=== PATIENT | female | born 1970 ===

== ENCOUNTER 2024-12-13 10:59 | Outpatient (REF) | payer SELFPAY ==
[2024-12-13 13:09] LABS: MANUAL DIFF FLAG NO
[2024-12-13 13:23] LABS: Basophils Absolute Auto 0.1 X10*3/uL (0.0-0.2); Basophils Percent Auto 0.6 % (0-2); Eosinophils Absolute Auto 0.2 X10*3/uL (0.0-0.4); Eosinophils Percent Auto 2.5 % (0-4); Hematocrit 44.3 % (37.0-47.0); Hemoglobin 14.7 g/dl (12.0-16.0); Imm Gran Abs Auto 0.08 X10*3/uL (0.00-0.03); Imm Gran Pct Auto 0.9 % (0.0-0.4); Lymphocytes Absolute Auto 3.2 X10*3/uL (1.2-4.9); Lymphocytes Percent Auto 37.5 % (20-40); Mean Corpuscular HGB Conc 33.2 g/dl (31.0-35.0); Mean Corpuscular Hemoglobin 28.2 pg (27.0-33.0); Mean Platelet Volume 12.2 fL (9.4-12.3); Monocytes Absolute Auto 0.6 X10*3/uL (0.1-1.2); Monocytes Percent Auto 6.7 % (2-11); Neutrophils Absolute Auto 4.5 x10*3/uL (2.0-8.3); Neutrophils Percent Auto 51.8 % (45-73); Platelet Count 274 X10*3/uL (160-400); Red Blood Count 5.21 X10*6/uL (4.20-5.50); Red Cell Distribution Width 13.6 % (11.0-16.0); White Blood Count 8.6 X10*3/uL (4.8-10.8)
[2024-12-13 13:45] LABS: Albumin Level 4.2 g/dL (3.5-5.0); Alkaline Phosphatase 71 U/L (39-117); Anion Gap 12 (12-20); Aspartate Amino Transferase 38 U/L (5-31); Bilirubin Total 0.4 mg/dL (0.0-1.0); Blood Urea Nitrogen 16 mg/dL (9-16); Calcium 9.1 mg/dL (8.4-10.2); Carbon Dioxide 27 mmol/L (22-29); Chloride 106 mmol/L (96-108); Cholesterol 220 mg/dL (<200); Estimated Glomerular Filt Rate > 60; Glucose Random 188 mg/dL (60-115); HDL Cholesterol 50 mg/dL (>40); LDL Cholesterol Calculated 136 mg/dL (<100); Potassium 3.7 mmol/L (3.3-5.1); Sodium 141 mmol/L (135-145); Total Protein 7.3 g/dL (6.5-8.0); Triglycerides 170 mg/dL (<150)
[2024-12-13 13:59] LABS: Alanine Aminotransferase 47 U/L (0-31); TSH reflex Free T4 3.83 uIU/mL (0.32-4.0)
[2024-12-14 14:17] LABS: HCV Log PCR <1.18 NOT DETECTED Log IU/mL (NOT DETECTED); HepC Viral Load <15 NOT DETECTED IU/mL (NOT DETECTED)
== END 2024-12-13 11:00 | disposition home or self-care (01) ==
LOC: HO.HHCL 10:59
PROVIDERS: Visit Provider Internal Medicine
DX: E11.9 Type 2 diabetes mellitus without complications (principal)
CPT/HCPCS: 36415; 80053; 80061; 84443; 85025; 87522

== ENCOUNTER 2025-09-26 16:38 | Outpatient (REF) | payer MEDICAID, OTHER, SELFPAY ==
--- OUTSIDE RECORDS SUMMARY | 2025-09-26 15:20 | XMS_ITS | Encounter Summary ---
Author Organization [facility] Address [address] [place] [address] Care Team Providers Care Head Charrer Name Role Phone Vance Bland MD Primary Care Provider [phone] Jovita Vela PharmD Unavailable [phone] Reason for Visit * Reason Comments Difficulty Urinating Urinary Frequency Blood in Urine Encounter Details Date Type Department Care Team ([facility] st Contact Info) Description 09/26/2025 3:20 PM EDT Office Visit [facility] [address] [place] [address] [phone] Name, MD Elie [address] [place] [phone] Urinary tract infection with hematuria, site unspecified (Primary Dx); UTI symptoms Social History Tobacco Use Types Packs/Day Years Used Date Smoking Tobacco: Never Passive Smoke Exposure: Never Smokeless Tobacco: Never Tobacco Cessation:Counseling Given: Not Answered Comments Unknown Sex and Gender Information Value Date Recorded Sex Assigned at Female 12/13/2024 9:03 AM EST Legal Sex Female 12:01 PM EST Gender Identity Female 12/13/2024 9:03 AM EST Sexual Orientation Straight 12/13/2024 9: 03 AM EST documented as of this encounter Last Filed Vital Signs Vital Sign Reading Time Taken Comments Blood Pressure 125/75 09/26/2025 3:01 PM EDT Pulse 97 09/26/2025 3:01 PM EDT Temperature 36.1 C (96.9 F) 09/26/2025 3:01 PM EDT Respiratory Rate 12 09/26/2025 3:01 PM EDT Oxygen Saturation 98% 09/26/2025 3:01 PM EDT Inhaled Oxygen Concentration - - Weight 86.4 kg (190 lb 6.4 oz) 09/26/2025 3:01 P M EDT Height 164 cm (5' 4.57 ) 09/26/2025 3:01 PM EDT Body Mass Index 32.11 09/26/2025 3:01 PM EDT documented in this encounter Progress Notes * Elie Ivy, - 09/26/2025 3:20 PM EDT Subjective Patient ID: Tete Meek is a 54 y.o. female who presents for Difficulty Urinating, Urinary Frequency, and Blood in Urine. Patient comes for a sick visit complaining of about 2 weeks of urinary frequency, dysuria. She describes a few episodes of hematuria. She does not have any fevers, no chills, no bodyaches, no CV angle discomfort. She is not sexually active. She has personal history of diabetes and is on Jardiance. Her last hemoglobin A1c was 10. Review of Systems Constitutional: Negative for chills and fever. HENT: Negative for sore throat. Respiratory: Negative for cough, shortness of breath and wheezing. Cardiovascular: Negative for chest pain, palpitations and leg swelling. Gastrointestinal: Negative for abdominal pain. Genitourinary: See HPI Objective Vitals: 09/26/25 1501 BP: 125/75 BP Location: Left arm Patient Position: Sitting BP Cuff Size: Adult Pulse: 97 Resp: 12 Temp: 96.9 ??F (36.1 ??C) TempSrc: Temporal SpO2: 98% Weight: 190 lb 6.4 oz (86.4 kg) Height: 5' 4.57 (1.64 m) Physical Exam Constitutional: Appearance: Normal appearance. Cardiovascular: Rate and Rhythm: Normal rate and regular rhythm. Heart sounds: No murmur heard. No gallop. Pulmonary: Effort: Pulmonary effort is normal. No respiratory distress. Breath sounds: Normal breath sounds. No wheezing. Neurological: Mental Status: She is alert. Latest Reference Range & Units 09/26/25 15:14 Color, UA Dark Elaine Specific [place], UA 1.010 pH, UA 5.5 Ketones, UA Negative Protein, UA Negative Nitrite, UA Negative, None Detected Negative RBC, UA Negative, None Detected Positive ! Clarity, UA Cloudy Glucose, UA Trace Leukocytes, UA Negative, Rare, Trace Trace Bilirubin UA Negative Urobilinogen, UA 0.2 Appearance, UA cloudy !: Data is abnormal Lab Results Component Value Date HGBA1C 10.3 (A) 12/13/2024 Assessment/Plan Diagnoses and all orders for this visit: Urinary tract infection with hematuria, site unspecified Comments: I suspect possible UTI and vaginitis related to uncontrolled diabetes and use of Jardiance. I recommended to drink plenty of water, 3-day course of Bactrim and 1 dose of fluconazole. She is encouraged to call or come back if she does not feel much better in a couple of days. Orders: - sulfamethoxazole-trimethoprim (Bactrim DS) 800-160 MG tablet; Take 1 tablet by mouth 2 times daily for 3 days. - fluconazole (Diflucan) 150 MG tablet; Take 1 tablet (150 mg) by mouth 1 (one) time for 1 dose. UTI symptoms - POCT Urinalysis - Urinalysis, Complete, with Reflex to Culture; Future documented in this encounter Plan of Treatment Not on file documented as of this encounter Procedures Procedure Name Priority Date/Time Associated Diagnosis Comments URINALYSIS, COMPLETE, WITH REFLEX TO CULTURE Routine 09/26/2025 4:38 PM EDT UTI symptoms POCT URINALYSIS DIPSTICK Routine 09/26/2025 3:14 PM EDT UTI symptoms documented in this encounter Results * (ABNORMAL) Urinalysis, Complete, with Reflex to Culture (09/26/2025 4:38 PM EDT) Color Urine Yellow [facility] Appearance Urine Clear [facility] PH 5.5 5.0 - 9.0 [facility] Glucose Urine UA >=1000(A) Negative mg/dL [facility] Urine Blood Trace(A) Negative [facility] Specific [place] - Urine >=1.030(H) 1.005 - 1.025 [facility] Urine Protein Negative Neg-Trace mg/dL [facility] Urine Ketones Negative Negative mg/dL [facility] Nitrite Urine Negative Negative [facility] Leukocyte Esterase Urine Small (1+)(A) Negative [facility] RBC Urine 3-5(A) 0 - 2 /HPF [facility] Urine WBC >50(A) 0 - 5 /HPF [facility] Urine Squamous Epithelial Cell 0-2 0 - 2 /HPF [facility] Urine Bacteria None Seen None Seen [facility] Hyaline Casts, Urine 0-2 0 - 2 /LPF [facility] Urine 09/26/2025 4:38 PM EDT 09/26/2025 6:06 PM EDT Narrative [facility] - 09/26/2025 6:07 PM EDT Urine, Clean Catch us Elie Ivy MD LAB URINE ORDERABLES Final Resul t [facility] [address] [place] [phone] [phone] * (ABNORMAL) POCT Urinalysis (09/26/2025 3:14 PM EDT) Color, UA Dark Elaine Clarity, UA Cloudy Glucose, UA Trace Comment:1000 mg/dL Bilirubin, UA Negative Ketones, UA Negative Spec Grav, UA 1.010 Blood, UA Positive(A) Negative, None Detected Comment:Trace-intact pH, UA 5.5 Protein, UA Negative Urobilinogen, UA 0.2 Leukocytes, UA Trace Negative, Rare, Trace Nitrite, UA Negative Negative, None Detected Appearance, UA cloudy QC Media Lot # [id number] Lot# Expiration Date 63026 Urine (Urine, Random) 09/26/2025 3:14 PM EDT us Elie Ivy MD POINT OF CARE TEST ENTER/EDIT OR DERABLES Final Result documented in this encounter Visit Diagnoses Diagnosis Urinary tract infection with hematuria, site unspecified- Primary UTI symptoms documented in this encounter Care Teams Head Charrer Relationship Specialty Start Date End Date Vance Bland MD [address] [place] [phone] PCP - General Internal Medicine 12/13/24 Jovita Vela, Kaylen [address] [place] [phone] Pharmacist Internal Medicine 01/06/25 documented as of this encounter
[2025-09-26 17:50] LABS: Appearance Urine Clear; Glucose Urine UA >=1000 mg/dL (Negative); PH 5.5 (5.0-9.0); Specific Gravity - Urine >= 1.030 (1.005-1.025); UMIC TRIGGER UACC YES
[2025-09-26 18:00] LABS: UACC Culture Trigger YES
--- OUTSIDE RECORDS SUMMARY | 2025-09-26 19:20 | XMS_ITS | Encounter Summary ---
Author Organization [employer] [facility] Address [address] [place] [address] 7 [place] [address] Care Team Providers Care Signwriter Name Role Phone Vance Bland MD Primary Care Provider Jovita Vela PharmD Unavailable [phone] Encounter Details Date Type Department Care Team (Latest Contact Info) Description 09/26/2025 Travel Social History Tobacco Use Types Packs/Day Years Used Date Smoking Tobacco: Never Passive Smoke Exposure: Never Smokeless Tobacco: Never Comments Unknown Sex and Gender Information Value Date Recorded Sex Assigned at Female 12/13/2024 9:03 AM EST Legal Sex Female 12:01 PM EST Gender Identity Female 12/13/2024 9:03 AM EST Sexual Orientation Straight 12/13/2024 9: 03 AM EST documented as of this encounter Plan of Treatment Not on file documented as of this encounter Visit Diagnoses Not on filedocumented in this encounter Care Teams Signwriter Relationship Specialty Start Date End Date Vance Bland MD [address] [place] [address] PCP - General Internal Medicine 12/13/24 Jovita Vela, PharmD [address] [place] [phone] Pharmacist Internal Medicine 01/06/25 documented as of this encounter
--- OUTSIDE RECORDS SUMMARY | 2025-09-26 19:20 | XMS_ITS | Encounter Summary ---
Author Organization [employer] ([employer] [facility] Address [address] [place] [address] 7t [place] [address] Care Team Providers Care Instrument Shop Supervisor Name Role Phone Vance Bland MD Primary Care Provider [phone] Jovita Vela PharmD Unavailable [phone] Reason for Referral * Imaging (Routine) - Closed Specialty Diagnoses / Procedures Referred By Kelly thomason Referred To Contact Radiology Diagnoses Transaminitis Procedures US Abdomen Complete Vance Bland MD [address] [place] [address] Phone: tel: fax: [address] Phone: tel: fax: Referral ID Status Reason Start Date Expiration Date Visits Re quested Visits Authorized [id number] Closed 12/24/2024 12/24/2025 1 1 Encounter Details Date Type Department Care Team (Late st Contact Info) Description 12/24/2024 Orders Only [facility] [address] [place] [phone] Vance Bland MD [address] [place], [place] [phone] Transaminitis (Primary Dx) Social History Tobacco Use Types Packs/Day Years [...] as of this encounter Plan of Treatment Scheduled Orders Name Type Priority Associated Diagnoses Orde r Schedule US Abdomen Complete Imaging Routine Transaminitis Expected: 12/24/2024, Expires: 12/24/2025 documented as of this encounter Visit Diagnoses Diagnosis Transaminitis- Primary Nonspecific elevation of levels of transaminase or lactic acid dehydrogenase (LDH) documented in this encounter Care Teams Instrument Shop Supervisor Relationship Specialty Start Date End Date Vance Bland MD [address] [place] [phone] PCP - General Internal Medicine 12/13/24 Jovita Vela PharmD [address] [place] [phone] Pharmacist Internal Medicine 01/06/25 documented as of this encounter
--- OUTSIDE RECORDS SUMMARY | 2025-09-26 19:20 | XMS_ITS | Clinical Summary ---
Author Organization [employer] Address [address] [facility] 7t [place] [address] Care Team Providers Care Parachute Packer Name Role Phone Vance Bland MD Primary Care Provider [phone] Jovita Vela PharmD Unavailable [phone] Allergies No known active allergies Medications FREESTYLE LITE test stripIndications :Type 2 diabetes mellitus without complication, without long-term current use of insulin ([facility]) Use to test blood sugar 1 times daily 100 each 12/13/2024 12/13/19 26 Active Lancets miscIndications: Type 2 diabetes mellitus without complication, without long-term current use of insulin ([facility]) Use to test blood sugar 1 times daily 100 each 11 12/13/2024 Active Alcohol Swabs 70 % padsIndications: Type 2 diabetes mellitus without complication, without long-term current use of insulin ([facility]) Use to test blood sugar 1 times daily 100 each 12/13/2024 Active Blood Glucose Monitoring Suppl (FreeStyle Frost Lite) w/Device kitIndications:T ype 2 diabetes mellitus without complication, without long-term current use of insulin ([facility]) Use to test blood sugar 1 times daily 1 kit 12/13/2024 Active repaglinide (Prandin) 0.5 MG tabletIndication s:Type 2 diabetes mellitus without complication, without long-term current use of insulin ([facility]) Take 1 tablet (0.5 mg) by mouth before breakfast, before lunch, and before evening meal. 90 tablet 11 12/13/2024 12/13/19 26 Active empagliflozin (Jardiance) 25 MGIndications:Ty pe 2 diabetes mellitus without complication, without long-term current use of insulin ([facility]) Take 1 tablet (25 mg) by mouth Once per day. 90 tablet 3 01/06/2025 Active liraglutide (Victoza) 18 MG/3ML injectionIndicat ions:Type 2 diabetes mellitus without complication, without long-term current use of insulin (H[facility]) Inject 1.8 mg under the skin Once per day. 27 mL 3 01/06/2025 Active insulin pen needle (Novofine Pen Needle) 32G x 6 mm [facility] Use as instructed, daily with Victoza 100 each 11 01/06/2025 01/06/20 26 Active levothyroxine (Synthroid, Levoxyl) 25 MCG tablet Take 25 mcg by mouth before breakfast. Active sulfamethoxazole -trimethoprim (Bactrim DS) 800-160 MG tabletIndication s:Urinary tract infection with hematuria, site unspecified Take 1 tablet by mouth 2 times daily for 3 days. 6 tablet 09/26/2025 09/29/20 25 Active fluconazole (Diflucan) 150 MG tabletIndication s:Urinary tract infection with hematuria, site unspecified Take 1 tablet (150 mg) by mouth 1 (one) time for 1 dose. 1 tablet 09/26/2025 09/26/20 25 Active Active Problems Problem Noted Date Diagnosed Date Type 2 diabetes mellitus wit hout complication, without long-term current use of insulin 12/13/2024 Encounters Date Type Department Care Team Description 09/26/2025 3:20 PM EDT Office Visit [facility] [address] [place] [phone] Name, MD Elie Urinary tract infection with hematuria, site unspecified (Primary Dx); UTI symptoms 09/26/2025 Travel 07/06/2025 Telephone [facility] [address] [place] [phone] Vance Bland MD from Last 3 Months Family History Medical History Relation Name Comments Diabetes type II Mother Hypertension Mother Relation Name Status Comments Mother Social History Tobacco Use Types Packs/Day Years Used Date Smoking Tobacco: Never Passive Smoke Exposure: Never Smokeless Tobacco: Never Tobacco Cessation:Counseling Given: Not Answered Comments Unknown Sex and Gender Information Value Date Recorded Sex Assigned at Female 12/13/2024 9:03 AM EST Legal Sex Female 12:01 PM EST Gender Identity Female 12/13/2024 9:03 AM EST Sexual Orientation Straight 12/13/2024 9: 03 AM EST Last Filed Vital Signs Vital Sign Reading [...] Mass Index 32.11 09/26/2025 3:01 PM EDT Plan of Treatment Health Maintenance Due Date Last Done Comments CT Colonography 1972 Colonoscopy 1972 Colorectal Cancer Screening 1972 Depression Screening 1972 FIT DNA/Cologuard 1972 FIT 1972 FOBT 1972 HIV Screening 1972 SDOH Screening 1972 Sigmoidoscopy 1972 Disability Screening 1972 Diabetes: Foot Exam 1982 Eye Exam 1982 Alcohol/Substance Use Screening 1984 Family Planning (PISQ) 1987 DTaP/Tdap/Td Vaccines (1 - Tdap) 1991 Diabetes: Urine Protein Screening 1991 Hepatitis B Vaccines (1 of 3 - 19+ 3-dose series) 1991 Pneumococcal Vaccine: 50+ Ye ars (1 of 2 - PCV) 1991 Pap Smear 1993 Cervical Cancer Screening 2002 HPV/Cotest 2002 Mammogram 2012 Zoster Vaccines (1 of 2) 2022 Diabetes: Hemoglobin A1C 03/13/2025 12/13/2024 COVID-19 Vaccine (1 - 2023-2 5 season) 2025 Influenza Vaccine (#1) 2025 Lipid Panel 12/13/2025 12/13/2024 Tobacco Screening 09/26/2026 09/26/2025 RSV Patients and Pa tients Aged 60 years or older (1 - 1-dose 75+ series) 2047 Hepatitis C Screening Completed 12/13/2024 HIB Vaccines Aged Out No longer eligi ble based on patient's age to complete this topic HPV Vaccines Aged Out No longer eligi ble based on patient's age to complete this topic Hepatitis A Vaccines Aged Out No long er eligible based on patient's age to complete this topic IPV Vaccines Aged Out No longer eligi ble based on patient's age to complete this topic Meningococcal B Vaccine Aged Out No l onger eligible based on patient's age to complete this topic Meningococcal Vaccine Aged Out No amie monica eligible based on patient's age to complete this topic RSV under 20 months Aged Out No longe r eligible based on patient's age to complete this topic Rotavirus Vaccines Aged Out No longer eligible based on patient's age to complete this topic Procedures Procedure Name Priority Date/Time Associated Diagnosis Comments URINALYSIS, COMPLETE, WITH REFLEX TO CULTURE Routine 09/26/2025 4:38 PM EDT UTI symptoms POCT URINALYSIS DIPSTICK Routine 09/26/2025 3:14 PM EDT UTI symptoms HEPATITIS C VIRAL RNA, QUANTITATIVE, REAL-TIME PCR Routine 12/13/2024 11:02 AM EST Type 2 diabetes mellitus without complication, without long-term current use of insulin ([facility]) LIPID PANEL, STANDARD Routine 12/13/2024 11:02 AM EST Type 2 diabetes mellitus without complication, without long-term current use of insulin ([facility]/HCC) POCT GLYCATED HEMOGLOBIN, TOTAL Routine 12/13/2024 10:23 AM EST Type 2 diabetes mellitus without complication, without long-term current use of insulin ([facility]) from Last 3 Months or Most Recently Relevant to Health Maintenance Results * (ABNORMAL) Urinalysis, Complete, with Reflex to Culture (09/26/2025 4:38 PM EDT) Color Urine Yellow [facility] Appearance Urine Clear [facility] PH 5.5 5.0 - 9.0 [facility] Glucose Urine UA >=1000(A) Negative mg/dL [facility] Urine Blood Trace(A) Negative [facility] Specific [place] - Urine >=1.030(H) 1.005 - 1.025 [facility] Urine Protein Negative Neg-Trace mg/dL [facility] Urine Ketones Negative Negative mg/dL [facility] Nitrite Urine Negative Negative [facility] Leukocyte Esterase Urine Small (1+)(A) Negative [facility] RBC Urine 3-5(A) 0 - 2 /HPF [facility] Urine WBC >50(A) 0 - 5 /HPF [facility] Urine Squamous Epithelial Cell 0-2 0 - 2 /HPF [facility] Urine Bacteria None Seen None Seen [facility] Hyaline Casts, Urine 0-2 0 - 2 /LPF [facility] Urine 09/26/2025 4:38 PM EDT 09/26/2025 6:06 PM EDT Narrative [facility] - 09/26/2025 6:07 PM EDT Urine, Clean Catch us Elie Name LAB URINE ORDERABLES Final Resul t [facility] [address] [place] [phone] * (ABNORMAL) POCT Urinalysis (09/26/2025 3:14 [...] Media Lot # [id number] Lot# Expiration Date 63,026 Urine (Urine, Random) 09/26/2025 3:14 PM EDT us Elie Ivy MD POINT OF CARE TEST ENTER/EDIT OR DERABLES Final Result * Hepatitis C Viral RNA, Quantitative, Real-Time PCR (12/13/2024 11:02 AM EST) Pathologist [facility] Hepatitis C Viral Load <15 NOT DETECTED NOT DETECTED IU/mL [facility] HCV Log PCR <1.18 NOT DETECTED NOT DETECTED Log IU/mL [facility] Comment:For additional infor mation, please refer [email or web address]://education.Cellca/faq/[email or web address](This link is being provided for informational/educational purposes only.)THIS TEST WAS PERFORMED AT:[id number] [place] [id number] ONOFRE MD Blood Venous blood specimen / Unknown 12/13/2024 11:02 AM EST 12/13/2024 1:06 PM EST us Vance Bland MD LAB BLOOD ORDERABLES Final Result [facility] [address] [place] [address] [phone] * (ABNORMAL) Lipid Panel, Standard (12/13/2024 11:02 AM EST) Triglycerides 170(H) <150 mg/dL [facility] Comment:Desirable Triglyceri de: less than 150 mg/dLBorderline High Triglyceride 150-199 mg/dLHigh Triglyceride: 200-499 mg/dLVery High Triglyceride: greater than or equal to 5OO mg/dL Cholesterol 220(H) <200 mg/dL [facility] Comment:Desirable Cholestero l: less than 200 mg/dLBorderline High Cholesterol: 200-239 mg/dLHigh Cholesterol: greater than 239 mg/dL LDL Cholesterol Calculated 136(H) <100 mg/dL [facility] Comment:Desirable LDL: less than 100 mg/dLNear Optimal/Above Optimal LDL: 110- 129 mg/dLBorderline High LDL: 130-159 mg/dLHigh LDL: 160-189 mg/dLVery High LDL: greater than or equal to 190 mg/dL HDL Cholesterol 50 >40 mg/dL [facility] Comment:Desirable HDL: great er than 40 mg/dL Note: This HDL assay may give artificially low results in patients with liver disease. Blood Venous blood specimen / Unknown 12/13/2024 11:02 AM EST 12/13/2024 1:06 PM EST us Vance Bland MD LAB BLOOD ORDERABLES Final Result [facility] [address] [place] [phone] [phone] * (ABNORMAL) POCT HGB A1C (12/13/2024 10:23 AM EST) Hemoglobin A1C 10.3(A) 4.0 - 6.0 % Blood 12/13/2024 10:2 3 AM EST us Vance Bland MD POINT OF CARE TEST ENTER/ED IT ORDERABLES Final Result from Last 3 Months or Most Recently Relevant to Health Maintenance Insurance [email or web address] [employer] Care Teams Parachute Packer Relationship Specialty Start Date End Date Vance Bland MD [address] [place] [phone] PCP - General Internal Medicine 12/13/24 Jovita Vela PharmD [address] [place] [phone] Pharmacist Internal Medicine 01/06/25
== END 2025-09-26 16:39 | disposition home or self-care (01) ==
LOC: HO.LNP 16:38
PROVIDERS: Visit Provider Internal Medicine Geriatric Medicine
DX: R39.9 Unspecified symptoms and signs involving the genitourinary system (principal)
CPT/HCPCS: 81001; 87086; 87088; 87186